=== PATIENT | male | born 1995 | race Caucasian/White ===

== ENCOUNTER 2017-07-10 19:53 | Emergency (ER) | payer BC ==
--- NOTE | 2017-08-26 12:40 | EKG ---
Test Reason : Blood Pressure : / mmHG Vent. Rate : 090 BPM Atrial Rate : 090 BPM P-R Int : 132 ms QRS Dur : 116 ms QT Int : 360 ms P-R-T Axes : 079 098 057 degrees QTc Int : 440 ms Sinus rhythm with marked sinus arrhythmia Right bundle branch block No STEMI Abnormal ECG Confirmed by CHANTAL NULL ([id number]), visual effects editor DESHAUN CAMPBELL ([id number] on 08/26/2017 12:39:58 PM Referred By: Confirmed By:CHANTAL NULL
== END 2017-07-10 21:38 | disposition left against medical advice (07) ==
LOC: ERS 19:53
DX: Z53.21 Procedure and treatment not carried out due to patient leaving prior to being seen by health care provider (principal)
CPT/HCPCS: 93005